=== PATIENT | female | born 1970 | race Two or more races ===

== ENCOUNTER 2019-02-19 14:44 | Outpatient (CLI) | payer OTHER | END 2019-02-19 15:39 | disposition home or self-care (01) | LOC: RAD 14:44 | DX: M54.5 Low back pain (principal); R52 Pain, unspecified; G89.21 Chronic pain due to trauma ==

== ENCOUNTER 2019-06-11 07:18 | Outpatient (CLI) | payer OTHER | END 2019-06-11 15:06 | disposition home or self-care (01) | LOC: NUCLEAR 07:18 | DX: I11.9 Hypertensive heart disease without heart failure (principal); R07.9 Chest pain, unspecified | CPT/HCPCS: 78452; 93017; A9500 ==

== ENCOUNTER 2024-10-13 07:03 | Day surgery (SDC) | payer OTHER ==
[2024-10-11 09:59] VITALS: BP 121/80
[2024-10-11 10:39] LABS: HEMOGLOBIN 15.1 g/dL (12.0-15.00); MEAN CELL VOLUME 88.9 fL (80.00-100.00); MEAN CORPUSCULAR HEMOGLOBIN 29.9 pg (27.00-32.0); MEAN CORPUSCULAR HGB CONC 33.6 g/dl (32.0-36.0); PLATELET COUNT 274 K/uL (150-450); RED BLOOD COUNT 5.06 M/uL (4.00-6.00); RED CELL DISTRIBUTION WIDTH 12.9 % (11.5-14.5)
[2024-10-11 10:43] LABS: PH,URINE 5.5 (5.0-8.0); URINE APPEARANCE Clear; URINE BILIRRUBIN Negative (NEGATIVE); URINE BLOOD Negative; URINE COLOR Yellow; URINE GLUCOSE Negative (NEGATIVE); URINE KETONE Negative (NEGATIVE); URINE LEUKOCYTE Trace; URINE NITRATE Negative; URINE PROTEIN Negative (NEGATIVE); URINE UROBILINOGEN 0.2 E.U./dl
[2024-10-11 10:47] LABS: URINE BACTERIA 28.1 uL (0.0-1933); URINE WBC 7.2 uL (0.0-23.2)
[2024-10-11 10:48] LABS: URINE RBC 1.9 uL (0.0-20.8)
[2024-10-11 11:07] LABS: INR 0.99; PARTIAL THROMBOPLASTIN TIME 31.5 SECONDS (22.0-34.0); PROTHROMBIN TIME 10.8 SECONDS (9.0-11.5)
[2024-10-11 11:59] LABS: ALBUMIN 4.4 gm/dL (3.4-5.0); BILIRUBIN TOTAL 0.55 mg/dL (0.3-1.2); CALCIUM 9.9 mg/dL (8.5-10.1); CREATININE SERUM 0.76 mg/dL (0.55-1.02); GFR 79.91; GLOBULINA 3.1 G/DL (2.4-3.5); POTASSIUM 5.1 mEq/L (3.5-5.1); TOTAL PROTEIN 7.5 gm/dL (6.4-8.2)
[~2024-10-13] VITALS: Ht 152.4 cm; Wt 76.2 kg
[~2024-10-13 07:03] MED LIST: BETAXOLOL; CRESTOR; WELLBUTRIN
[2024-10-13] MEDS ORDERED: MORPHINE SULFATE 2 MG/ML CARTRIDGE IV ONE (14:10)
[2024-10-13] MEDS ORDERED: MORPHINE SULFATE 4 MG/ML VIAL IV ONE (14:40)
[2024-10-13] MEDS ORDERED: CEFAZOLIN SODIUM 1,000 MG VIAL IV ONE (19:00)
== END 2024-10-13 16:50 | disposition home or self-care (01) ==
LOC: CIR.AMB 07:03
PROVIDERS: ATTEND Surgery
DX: K80.10 Calculus of gallbladder with chronic cholecystitis without obstruction (principal); F32.9 Major depressive disorder, single episode, unspecified; I49.9 Cardiac arrhythmia, unspecified; E78.00 Pure hypercholesterolemia, unspecified; G47.30 Sleep apnea, unspecified; E78.5 Hyperlipidemia, unspecified